=== PATIENT | female | born 1970 | race Caucasian/White ===

== ENCOUNTER 2022-02-14 19:38 | Outpatient (CLI) | payer BC, SELFPAY ==
--- NOTE | 2022-02-21 12:05 | P.SLS_ITS ---
Sleep Study Details Details Interpreting Provider: Yordy Valentine MD Date of Sleep Study: 02/14/22 Sleep Study Details: STUDY TYPE:? Home ? BMI:? 25.8 ORDERING PROVIDER:? Amber INDICATION:? Concerns about sleep apnea ? SLEEP SUMMARY:? Monitor time 492 minutes RESPIRATORY SUMMARY:? AHI is 3.5. Low oxygen was 86. 1% of study oxygen was less than 90% snoring 2.8% PERIODIC LIMB MOVEMENTS OF SLEEP:? Not recorded CARDIAC:? Range 53 to 94, mean 67.3 IMPRESSION:? This study is not demonstrate clinically significant obstructive sleep apnea. However the patient's oxygenation was less than 90% for 5.2 minutes during the study. RECOMMENDATION: If sleep disorder is strongly suspected would recommend an in- lab study.
== END 2022-02-14 19:39 | disposition home or self-care (01) ==
LOC: SLEEP 19:39
PROVIDERS: PCP Family Medicine; Visit Provider Otolaryngology
DX: G47.09 Other insomnia (principal); R06.83 Snoring
CPT/HCPCS: 95806

== ENCOUNTER 2024-09-12 09:00 | Outpatient (RCR) | payer BC, OTHER, MEDICAID, SELFPAY | END 2025-01-10 23:59 | disposition home or self-care (01) | PROVIDERS: PCP Family Medicine; Visit Provider Family Medicine | DX: M79.644 Pain in right finger(s) (principal); M77.11 Lateral epicondylitis, right elbow; Z51.89 Encounter for other specified aftercare | CPT/HCPCS: 97033; 97035; 97110; 97140; 97165; 97530; 97535; X5282 ==